=== PATIENT | female | born 1940 | race African-American/Black ===

== ENCOUNTER 2024-12-20 17:48 | Emergency (ER) | payer OTHER ==
[~2024-12-20] VITALS: Ht 167.6 cm; Wt 55.0 kg
[2024-12-20 17:50] VITALS: O2SAT 99
[2024-12-20] MEDS: SODIUM CHLORIDE 0.9% (SEPSIS BOLUS) IV ONE (18:44)
[2024-12-20] MEDS: ONDANSETRON HCL 4MG/2ML INJ IV ONE (18:44)
[2024-12-20 20:12] LABS: BASOPHILS % 0.2 % (0.0-2.0); EOSINOPHILS % 0.1 % (0.0-5.0); HEMATOCRIT. 37.4 % (36.0-48.0); HEMOGLOBIN. 12.8 g/dL (12.0-16.0); LYMPHOCYTES % 9.5 % (20.0-50.0); MEAN CORPUSCULAR HEMOGLOBIN 31.7 pg (28.0-32.0); MEAN CORPUSCULAR HGB CONC 34.3 g/dL (31.0-37.0); MEAN CORPUSCULAR VOLUME 92.6 fL (81.0-99.0); MEAN PLATELET VOLUME 8.1 fl (7.4-10.4); MONOCYTES % 7.9 % (2.0-8.0); NEUTROPHILS % 82.3 % (40.0-76.0); PLATELET 144 x1000/uL (130-400); RED BLOOD CELL COUNT 4.04 mill/uL (4.2-5.4); RED CELL DISTRIBUTION WIDTH 13.2 % (11.6-14.6); WHITE BLOOD COUNT 7.6 x1000/uL (4.5-11.0)
[2024-12-20 20:17] LABS: CHLORIDE 110 mEq/L (98-107); POTASSIUM 4.2 mEq/L (3.5-5.1); SODIUM 144 mEq/L (136-145)
[2024-12-20 20:18] LABS: CARBON DIOXIDE 28 mEq/L (21-32)
[2024-12-20 20:23] LABS: CREATININE 0.7 mg/dL (0.6-1.0); GLUCOSE 140 mg/dL (70-105); UREA NITROGEN BLOOD 11 mg/dL (9-23)
[2024-12-20 20:25] LABS: TROPONIN I HIGH SENSITIVITY 28 ng/L (3.0-34)
[2024-12-20 20:30] LABS: INR 1.2; PARTIAL THROMBOPLASTIN TIME < 21.0 sec (23.4-31.0); PROTHROMBIN TIME 13.7 sec (9.6-11.0)
[2024-12-20] MEDS: ASPIRIN 81MG TABLET PO ONE (21:19)
[2024-12-20 22:27] VITALS: BP 125/71; PULSE 61; RESP 18; TEMP 36.7; O2SAT 99
[2024-12-20] MEDS ORDERED: IOHEXOL-350 100 ML BOTTLE ONE (23:13)
== END 2024-12-20 22:42 | disposition short-term general hospital (02) ==
LOC: ER 18:41 → CANBEDREQ 21:15 → ER 22:42
DX: R41.82 Altered mental status, unspecified (principal); F03.90 Unspecified dementia, unspecified severity, without behavioral disturbance, psychotic disturbance, mood disturbance, and anxiety; Z86.73 Personal history of transient ischemic attack (TIA), and cerebral infarction without residual deficits; Z79.899 Other long term (current) drug therapy
CPT/HCPCS: 99291; 70496; 96360; 71045; 80048; 83880; 85025; 85610; 85730; 84484; 36415; 70498; 70450; 93005; Q9967; J2405; J7030

== ENCOUNTER 2025-02-18 12:19 | Emergency (ER) | payer MEDICARE, OTHER ==
[~2025-02-18] VITALS: Ht 167.6 cm; Wt 54.0 kg
[2025-02-18 12:19] VITALS: O2SAT 100
[2025-02-18 15:07] LABS: BASOPHILS % 0.2 % (0.0-2.0); EOSINOPHILS % 0.2 % (0.0-5.0); HEMATOCRIT. 46.3 % (36.0-48.0); LYMPHOCYTES % 14.6 % (20.0-50.0); MEAN CORPUSCULAR HEMOGLOBIN 29.7 pg (28.0-32.0); MEAN CORPUSCULAR HGB CONC 32.3 g/dL (31.0-37.0); MEAN CORPUSCULAR VOLUME 91.7 fL (81.0-99.0); MEAN PLATELET VOLUME 8.5 fl (7.4-10.4); PLATELET 179 x1000/uL (130-400); RED BLOOD CELL COUNT 5.04 mill/uL (4.2-5.4); RED CELL DISTRIBUTION WIDTH 14.1 % (11.6-14.6); WHITE BLOOD COUNT 7.1 x1000/uL (4.5-11.0)
[2025-02-18 15:13] VITALS: BP 146/77; PULSE 52; RESP 13; TEMP 36.8; O2SAT 96
[2025-02-18 15:19] LABS: CHLORIDE 111 mEq/L (98-107); POTASSIUM 3.6 mEq/L (3.5-5.1); SODIUM 143 mEq/L (136-145)
[2025-02-18 15:20] LABS: CALCIUM 9.7 mg/dL (8.7-10.4); CARBON DIOXIDE 23 mEq/L (21-32)
[2025-02-18 15:25] LABS: CREATININE 0.6 mg/dL (0.6-1.0); GLUCOSE 96 mg/dL (70-105); TROPONIN I HIGH SENSITIVITY 34 ng/L (3.0-34); UREA NITROGEN BLOOD 9 mg/dL (9-23)
[2025-02-18] MEDS: ENOXAPARIN 40MG/0.4ML SYR SUBCUT ONE (18:24)
[2025-02-18] MEDS ORDERED: IOHEXOL-350 100 ML BOTTLE ONE (23:27)
== END 2025-02-18 20:28 | disposition short-term general hospital (02) ==
LOC: ER 12:19 → CANBEDREQ 18:06 → ER 20:28
DX: R55 Syncope and collapse (principal); I26.99 Other pulmonary embolism without acute cor pulmonale; F02.80 Dementia in other diseases classified elsewhere, unspecified severity, without behavioral disturbance, psychotic disturbance, mood disturbance, and anxiety; G30.9 Alzheimer's disease, unspecified; I67.82 Cerebral ischemia; Z86.73 Personal history of transient ischemic attack (TIA), and cerebral infarction without residual deficits
CPT/HCPCS: 99285; 71275; 71045; 80048; 83880; 85025; 85379; 84484; 36415; 70450; 93005; 96372; Q9967; J1650; A4606